=== PATIENT | male | born 1995 | race Caucasian/White ===

== ENCOUNTER → 2020-07-15 | Outpatient (CLI) | payer OTHER ==
[~2020-07-15] MED LIST: FLEXERIL10 MG PO; MOTRIN800 MG PO; NKHM
== END | disposition home or self-care (01) ==
LOC: RAD 10:34
PROVIDERS: ATTEND Nurse Practitioner Primary Care
DX: R07.89 Other chest pain (principal); R07.81 Pleurodynia

== ENCOUNTER → 2021-10-08 | Outpatient (CLI) | payer OTHER | END | disposition home or self-care (01) | LOC: CARD 09-16 15:00 | PROVIDERS: ATTEND Internal Medicine Cardiovascular Disease | DX: R07.9 Chest pain, unspecified (principal); E66.9 Obesity, unspecified; Z72.0 Tobacco use ==